=== PATIENT | male | born 1980 | race Caucasian/White ===

== ENCOUNTER 2017-06-03 15:35 | Outpatient (CLI) | payer BC | END 2017-06-03 15:36 | disposition home or self-care (01) | LOC: BICULT 15:35 | PROVIDERS: ATTEND Family Medicine | DX: E03.9 Hypothyroidism, unspecified (principal) | CPT/HCPCS: 76536 ==

== ENCOUNTER 2017-09-01 09:09 | Outpatient (CLI) | payer BC ==
--- NOTE | 2017-09-02 10:22 | NM ---
THYROID UPTAKE AND SCAN: HISTORY: A 36-year-old male with thyrotoxicosis. TECHNIQUE: A thyroid uptake and scan was performed after the administration of 0.24 millicuries of I-123. FINDINGS: The thyroid lobes are homogeneous in appearance without hot or cold nodules. These measure 4.6 and 4 .4 cm in size on the left and right, respectively. Six-hour uptake is 12%. Uagdva-aght-piuf uptake is 26%. IMPRESSION: Normal thyroid uptake and scan. POS: [facility]
== END 2017-09-01 09:10 | disposition home or self-care (01) ==
LOC: NM 09:09
PROVIDERS: ATTEND Family Medicine
DX: E05.90 Thyrotoxicosis, unspecified without thyrotoxic crisis or storm (principal)
CPT/HCPCS: 78014; A9516